=== PATIENT | female | born 1995 | race Caucasian/White ===

== ENCOUNTER → 2016-05-04 | Outpatient (CLI) | payer OTHER ==
[~2016-05-04] MED LIST: DICY10CA55 PO; DOCU-94 PO; DOCU100C PO; DULO60CA44 PO; FLUO40CA8 PO; LEVO200T PO; MONT1TAB3 PO; NORE-3 PO; NORE1TAB70 PO; NORE1TAB99 PO; ONDA4TAB46 PO; PANT40TA PO; POLY150C4 PO; PRT/20 PO; [UNRECOGNIZED DRUG - CODE] PO
--- NOTE | 2016-05-04 18:09 | DIAGNOSTIC IMAGING REPORT ---
LEFT RIBS UNILATERAL WITH PA CHEST CLINICAL HISTORY: Left rib pain. COMPARISON STUDY: No previous studies for comparison. FINDINGS: The erect chest reveals no pneumothorax. There is no focal pulmonary consolidation. No left-sided rib fractures are visualized. No destructive lesions are visualized on conventional radiographic imaging. IMPRESSION: 1. No left-sided rib fractures or destructive lesions are visualized 2. No evidence of pneumothorax Electronically signed by: Fidencio Diaz M.D. 05/04/2016 6:08 PM Dictated Date/Time: 05/04/2016 6:06 PM
== END | disposition home or self-care (01) ==
LOC: C.RAD 17:42
PROVIDERS: ATTEND Family Medicine
DX: R07.81 Pleurodynia (principal)

== ENCOUNTER 2016-05-09 11:22 | Emergency (ER) | payer OTHER ==
[~2016-05-09] VITALS: Ht 172.7 cm; Wt 126.1 kg
[~2016-05-09 11:22] MED LIST changes: -DICY10CA55 PO; -DOCU-94 PO; -DOCU100C PO; -DULO60CA44 PO; -MONT1TAB3 PO; -NORE-3 PO; -NORE1TAB99 PO; -PANT40TA PO; -POLY150C4 PO; -[UNRECOGNIZED DRUG - CODE] PO
[2016-05-09 11:26] VITALS: TEMP 36.9; Ht 172.7 cm; Wt 126.1 kg
[2016-05-09] MEDS ORDERED: NORE1TAB99 PO (12:55)
[2016-05-09] MEDS ORDERED: POLY150C4 PO (12:55)
--- NOTE | 2016-05-09 13:00 | DIAGNOSTIC IMAGING REPORT ---
PA CHEST WITH ABDOMINAL SERIES CLINICAL HISTORY: Generalized abdominal pain. Constipation. FINDINGS: A PA chest radiograph is compared to study dated 05/09/2015. The cardiomediastinal silhouette is unremarkable. The lungs and pleural spaces are clear. No pneumothorax is seen. The bony thorax is grossly intact. Supine and erect abdominal radiographs are compared to study dated and correlated with abdominal CT dated 08/31/2015. There is a nonobstructed abdominal bowel gas pattern noting moderate to severe constipation. No intraperitoneal free air is seen. There are no abnormal abdominal calcifications. The lumbosacral spine and bony pelvis appear intact. IMPRESSION: 1. No active disease in the chest. 2. Moderate to severe constipation. Electronically signed by: Glenn Taveras M.D. 05/09/2016 12:58 PM Dictated Date/Time: 05/09/2016 12:57 PM
--- NOTE | 2016-05-09 13:28 | EMERGENCY ROOM VISIT NOTE ---
History First contact with patient: 11:35 Chief Complaint: ABDOMINAL PAIN Stated Complaint: ABD PAIN,CONSTIPATION Nursing Triage Summary: Triage note: pt reports lower abd pain "i think it is just constipation." pt reports last bm was over a week ago. pt reports using otc medication with no success. History of Present Illness The patient is a 20 year old female who presents to the Emergency Room with complaints of constipation. The patient reports that she has not had a bowel movement for one week. She states that today, she developed some discomfort in her lower abdomen which she feels is likely secondary to the constipation. She does have a history of occasional constipation due to gastroparesis. She states that she has had some nausea, but this is not unusual for her. She's been taking her nausea medication at home and has not had any vomiting. She states that she took Dulcolax yesterday, but did not have a bowel movement. She rates her overall discomfort a 2/10. She called her primary care provider and was told to come here for evaluation. She denies any chest pain, shortness of breath, vaginal bleeding, vaginal discharge or urinary symptoms. Review of Systems A complete 10-point Review of Systems was discussed with the patient, with pertinent positives and negatives listed in the History of Present Illness. All remaining Review of Systems questions can be considered negative unless otherwise specified. Past Medical/Surgical History Medical Problems: (1) Depression (2) History of thyroidectomy (3) HX OF THYROID MALIGNANCY (4) HYPOTHYROIDISM NOS (5) IRON DEFIC ANEMIA NOS (6) POSTSURGICAL STATES NEC (7) THROMBOCYTOPATHY (8) Tonsillectomy (9) Traumatic pneumothorax Family History Depression Social History Smoking Status: Never Smoker Alcohol Use: none Drug Use: none Marital Status: single Housing Status: lives alone Occupation Status: student Current/Historical Medications Scheduled Fluoxetine (Prozac), 40 MG PO QD Levothyroxine Sodium (Synthroid), 1 TAB PO DAILY Norethin Acet & Estrad-Fe (Gildess Fe 04/17), 1 TAB PO DAILY Pantoprazole (Protonix), 20 MG PO DAILY Polysaccharide Iron Complex (Ferrex 150), 300 MG PO DAILY Scheduled PRN Ondansetron Hcl (Zofran), 4 MG PO TID PRN for Nausea Allergies Coded Allergies: No Known Allergies (Verified , 05/09/16) Physical Exam Vital Signs Date Time Temp Pulse Resp B/P Pulse Ox O2 Delivery O2 Flow Rate FiO2 05/09/16 13:29 66 18 161/107 97 Room Air 05/09/16 12:58 77 18 127/92 97 Room Air 05/09/16 11:26 36.9 82 18 128/92 97 Room Air Physical Exam VITALS: Vitals are noted on the nurse's note and reviewed by myself. Vital signs stable. GENERAL: This is a 20-year-old female, in no acute distress, nondiaphoretic, well-developed well-nourished. SKIN: Capillary reflex less than 2 seconds. HEENT: Normocephalic. PERRLA. EOMI. Nares patent. Mucous membranes moist. Neck is supple without nuchal rigidity. HEART: Regular rate and rhythm without murmurs gallops or rubs. LUNGS: Clear to auscultation bilaterally without wheezes, rales or rhonchi. ABDOMEN: Positive bowel sounds x 4. Minimal tenderness to palpation across the lower abdomen. No guarding or rebound tenderness. No focal tenderness. NEURO: Patient was alert and oriented to person place and time. Medical Decision & Procedures ER Provider Diagnostic Interpretation: PA CHEST WITH ABDOMINAL SERIES CLINICAL HISTORY: Generalized abdominal pain. Constipation. FINDINGS: A PA chest radiograph is compared to study dated 05/09/2015. The cardiomediastinal silhouette is unremarkable. The lungs and pleural spaces are clear. No pneumothorax is seen. The bony thorax is grossly intact. Supine and erect abdominal radiographs are compared to study dated and correlated with abdominal CT dated 08/31/2015. There is a nonobstructed abdominal bowel gas pattern noting moderate to severe constipation. No intraperitoneal free air is seen. There are no abnormal abdominal calcifications. The lumbosacral spine and bony pelvis appear intact. IMPRESSION: 1. No active disease in the chest. 2. Moderate to severe constipation. Medications Administered Medications (Trade) Dose Ordered Sig/Michela Route Start Time Stop Time Status Last Admin Dose Admin Magnesium Citrate (Citrate Of Magnesia Soln) 150 ml NOW ONCE PO 05/09/16 13:30 05/09/16 13:31 DC 05/09/16 13:27 150 ML Medical Decision Differential diagnosis includes constipation, bowel obstruction, appendicitis, cholecystitis, gastroenteritis, colitis, among others. The patient was evaluated as above. She presents complaining of constipation and mild lower abdominal pain. She does not have a surgical abdomen and has only minimal tenderness to palpation of the lower abdomen. I feel that her abdominal discomfort is secondary to the constipation, as the constipation began for the abdominal pain and her exam is not impressive. Abdominal series was performed and read by radiology to show moderate to severe constipation. The patient was informed of this. She was offered an enema but declined. She was given magnesium citrate for relief of the constipation. I did discuss using a stool softener at home. The patient agreed to follow-up with her primary care provider this week for further evaluation, but will return for any worsening or concerning symptoms. Based on the patient's presentation, lab results, and imaging studies, I feel the patient is stable for outpatient treatment. Discharge instructions were reviewed with the patient. The patient verbalized understanding of my assessment and treatment plan and was discharged home in good condition. Impression Primary Impression: Constipation Departure Information Dispostion Home / Self-Care Condition GOOD Referrals Riri Hernandez DO (PCP) Patient Instructions My [facility] Additional Instructions Take the remaining magnesium citrate in 2-3 hours when you get home. If you do not have relief with this medication, you may use [id number] medications or [id number] enemas for constipation. You should begin taking a stool softener daily. You should follow-up with your primary care provider this week for further evaluation of your constipation. Return to the emergency department with worsening pain, vomiting, worsening constipation or any other new/concerning symptoms. Problem Qualifiers Primary Impression: Constipation Constipation type: unspecified constipation type Qualified Codes: K59.00 - Constipation, unspecified
[2016-05-09 13:29] VITALS: BP 161/107; PULSE 66; O2SAT 97
[2016-05-09] MEDS ORDERED: MAGNESIUM CITRATE 296 ML/BTL PO ONE (13:30)
[2016-05-10] MEDS ORDERED: DULO60CA44 PO (09:03)
== END 2016-05-09 13:42 | disposition home or self-care (01) ==
LOC: C.EDB 11:23
DX: K59.00 Constipation, unspecified (principal); F32.9 Major depressive disorder, single episode, unspecified; E89.0 Postprocedural hypothyroidism; D50.9 Iron deficiency anemia, unspecified; Z85.850 Personal history of malignant neoplasm of thyroid; Z79.899 Other long term (current) drug therapy; Z81.8 Family history of other mental and behavioral disorders

== ENCOUNTER 2016-05-10 08:18 | Emergency (ER) | payer OTHER ==
[~2016-05-10] VITALS: Ht 172.7 cm; Wt 125.4 kg
[~2016-05-10 08:18] MED LIST changes: -NORE1TAB70 PO; +NORE1TAB99 PO; +POLY150C4 PO
[2016-05-10 08:29] VITALS: Ht 172.7 cm; Wt 125.4 kg
[2016-05-10] MEDS ORDERED: SOD PHOSPHATE/SOD BIPHOSPHATE ENEMA 132 ML BTL PR STA (08:49)
[2016-05-10] MEDS ORDERED: ONDANSETRON INJ 2 MG/ML 2 ML VIAL IV STA (08:49)
[2016-05-10] MEDS ORDERED: SODIUM CHLORIDE 0.9% 1000ML 1,000 ML IV STA (08:49)
[2016-05-10] MEDS ORDERED: SOAP SUDS ENEMA PR STA (08:49)
[2016-05-10] MEDS ORDERED: KETOROLAC TROMETHAMINE 30 MG/ML VIAL IV STA (08:49)
[2016-05-10] MEDS ORDERED: HYDROmorphone INJ 1 MG/ML SYR IV STA (08:49)
[2016-05-10] MEDS ORDERED: OPTIRAY 320 IV PRN (09:00)
--- NOTE | 2016-05-10 09:02 | EMERGENCY ROOM VISIT NOTE ---
History Report prepared by Eulogio: Ana Lilia Fonseca Under the Supervision of: Dr. Katia Luna M.D. First contact with patient: 08:35 Chief Complaint: ABDOMINAL PAIN Stated Complaint: ABDOMINAL PAIN Nursing Triage Summary: pt report constipation X 1 week , pt took supp prior to being seen here yesterday , then was given enema and mag citrate here yesterday, pt took stool softner OTC, still no BM , cont with abdominal cramping and had 1 small BM this AM History of Present Illness The patient is a 20 year old female who presents to the Emergency Room with complaints of persistent diffuse abdominal pain that started yesterday. She rates her discomfort as a 4/10 in severity. She describes the pain as cramping. The patient states that she has been constipated for one week now. The patient is also experiencing nausea, but denies any vomiting. She states that she has been unable to eat or drink secondary to the nausea. She was seen in the ED yesterday and took a suppository prior to being seen. While in the ED yesterday she was given an enema and magnesium citrate. She tried an [id number]-zlm-cubdjvh stool softener when she got home yesterday. The patient has experienced minimal relief of her constipation with all of the things that she took. She states that she only had a small bowel movement this morning, but otherwise has not had any bowel movements. The patient reports that she has been diagnosed with gastroparesis and thinks that could be contributing to her constipation. She also reports that she takes two iron pills daily. The patient denies recreational narcotic use and she states that she only uses them after surgeries as prescribed. The patient denies any previous abdominal surgeries along with any previous abdominal CT scans. Source of History: patient Onset: yesterday Position: abdomen (diffuse) Symptom Intensity: 4/10 Quality: cramping Timing: other (persistent) Modifying Factors (Relieving): other (None) Associated Symptoms: + nausea, No vomiting Note: constipation Review of Systems See HPI for pertinent positives & negatives. A total of 10 systems reviewed and were otherwise negative. Past Medical & Surgical Medical Problems: (1) Depression (2) History of thyroidectomy (3) HX OF THYROID MALIGNANCY (4) HYPOTHYROIDISM NOS (5) IRON DEFIC ANEMIA NOS (6) POSTSURGICAL STATES NEC (7) THROMBOCYTOPATHY (8) Tonsillectomy (9) Traumatic pneumothorax Family History Depression Social History Smoking Status: Never Smoker Alcohol Use: none Drug Use: none Marital Status: single Housing Status: lives alone Occupation Status: student Current/Historical Medications Scheduled Duloxetine Hcl (Cymbalta), 1 CAP PO DAILY Levothyroxine Sodium (Synthroid), 1 TAB PO DAILY Norethin Acet & Estrad-Fe (Gildess Fe 04/17), 1 TAB PO DAILY Pantoprazole (Protonix), 20 MG PO DAILY Polysaccharide Iron Complex (Ferrex 150), 300 MG PO DAILY Allergies Coded Allergies: No Known Allergies (Verified , 05/10/16) Physical Exam Vital Signs Date Time Temp Pulse Resp B/P Pulse Ox O2 Delivery O2 Flow Rate FiO2 05/10/16 11:49 75 16 118/78 96 Room Air 05/10/16 10:19 84 20 144/100 98 Room Air 05/10/16 08:29 37.2 86 18 138/94 98 Room Air Physical Exam CONSTITUTIONAL: The patient is in mild distress. HEENT: No icterus, moist mucous membranes NECK: No meningismus, trachea is midline. CARDIOVASCULAR: Regular rate, normal perfusion RESPIRATORY: Unlabored breathing. Clear to auscultation. GASTROINTESTINAL: Non-tender GENITOURINARY: No flank tenderness MUSCULOSKELETAL: Full range of motion RECTAL (performed in the presence of a female nurse smocking machine operator): No evidence of impaction. NEUROLOGIC: No acute gross focal deficits. PSYCHIATRIC: Normal affect SKIN: Normal for ethnicity. Medical Decision & Procedures ER Provider Diagnostic Interpretation: CT results as stated below per my review and radiologist interpretation. CT OF THE ABDOMEN AND PELVIS WITH CONTRAST IMPRESSION: 1. Moderate amount of stool within the mid sigmoid colon. Otherwise, mild amount of stool within the remainder of the colon. Mild infiltration adjacent to the sigmoid colon is nonspecific but may reflect a nonspecific colitis. No bowel obstruction. No free air. 2. Partially obscured appendix which is likely within normal limits. The appendix is at the upper limits of normal for caliber. No convincing evidence for acute appendicitis but close clinical follow-up is recommended. 3. Small amount of fluid within the pelvis. 4. Trace bilateral pleural effusions. Electronically signed by: Clemente Cote M.D. 05/10/2016 11:51 AM Dictated Date/Time: 05/10/2016 11:42 AM Laboratory Results 05/10/16 09:01 Red Blood Count 3.83, Mean Corpuscular Volume 87.7, Mean Corpuscular Hemoglobin 29.8, Mean Corpuscular Hemoglobin Concent 33.9, Mean Platelet Volume 9.8, Neutrophils (%) (Auto) 72.8, Lymphocytes (%) (Auto) 20.4, Monocytes (%) (Auto) 5.5, Eosinophils (%) (Auto) 0.9, Basophils (%) (Auto) 0.2, Neutrophils # (Auto) 3.85, Lymphocytes # (Auto) 1.08, Monocytes # (Auto) 0.29, Eosinophils # (Auto) 0.05, Basophils # (Auto) 0.01 05/10/16 09:01 Test 05/10/16 09:01 White Blood Count 5.29 K/uL (4.8-10.8) Red Blood Count 3.83 M/uL (4.2-5.4) Hemoglobin 11.4 g/dL (12.0-16.0) Hematocrit 33.6 % (37-47) Mean Corpuscular Volume 87.7 fL (80-100) Mean Corpuscular Hemoglobin 29.8 pg (25-34) Mean Corpuscular Hemoglobin Concent 33.9 g/dl (32-36) Platelet Count 180 K/uL (130-400) Mean Platelet Volume 9.8 fL (7.4-10.4) Neutrophils (%) (Auto) 72.8 % Lymphocytes (%) (Auto) 20.4 % Monocytes (%) (Auto) 5.5 % Eosinophils (%) (Auto) 0.9 % Basophils (%) (Auto) 0.2 % Neutrophils # (Auto) 3.85 K/uL (1.4-6.5) Lymphocytes # (Auto) 1.08 K/uL (1.2-3.4) Monocytes # (Auto) 0.29 K/uL (0.11-0.59) Eosinophils # (Auto) 0.05 K/uL (0-0.5) Basophils # (Auto) 0.01 K/uL (0-0.2) RDW Standard Deviation 45.6 fL (36.4-46.3) RDW Coefficient of Variation 14.2 % (11.5-14.5) Immature Granulocyte % (Auto) 0.2 % Immature Granulocyte # (Auto) 0.01 K/uL (0.00-0.02) Urine Color YELLOW Urine Appearance CLEAR (CLEAR) Urine pH >= 9.0 (4.5-7.5) Urine Specific [place] 1.015 (1.000-1.030) Urine Protein TRACE (NEG) Urine Glucose (UA) NEG (NEG) Urine Ketones NEG (NEG) Urine Occult Blood NEG (NEG) Urine Nitrite NEG (NEG) Urine Bilirubin NEG (NEG) Urine Urobilinogen NEG (NEG) Urine Leukocyte Esterase NEG (NEG) Anion Gap 8.0 mmol/L (3-11) Est Creatinine Clear Calc Drug Dose 126.9 ml/min Estimated GFR () 95.6 Estimated GFR (Non- 82.5 BUN/Creatinine Ratio 17.3 (10-20) Calcium Level 9.2 mg/dl (8.5-10.1) Human Chorionic Gonadotropin, Qual NEG (NEG) Labs reviewed by ED physician. Medications Administered Medications (Trade) Dose Ordered Sig/Michela Route Start Time Stop Time Status Last Admin Dose Admin Sodium Chloride (Nss 1000ml) 1,000 ml @ 0 mls/hr Q0M STAT IV 05/10/16 08:49 05/10/16 08:52 DC 05/10/16 08:49 0 MLS/HR Miscellaneous (Soap Suds Enema) 1 ea NOW STAT WA 05/10/16 08:49 05/10/16 08:52 DC 05/10/16 09:59 1 EA Ondansetron HCl (Zofran Inj) 4 mg NOW STAT IV 05/10/16 08:49 05/10/16 08:52 DC 05/10/16 10:24 4 MG Ketorolac Tromethamine (Toradol Inj) 30 mg NOW STAT IV 05/10/16 08:49 05/10/16 08:52 DC 05/10/16 10:23 30 MG ED Course 0848: Past medical records reviewed. The patient was evaluated in room B8. A complete history and physical examination was performed. 0849: Ordered Dilaudid Inj 1 mg IV, Toradol Inj 30 mg IV, Zofran Inj 4 mg IV, Soap Suds Enema 1 ea WA, Sodium Chloride 1000 ml @ 0 mls/hr Wide Open IV 1002: I reassessed the patient. She is resting comfortably. 1232: Upon reexamination the patient is doing ok. I discussed results and treatment plan with the patient. She verbalizes agreement and understanding. The patient is ready for discharge. Medical Decision Differential diagnoses include but are not limited to; constipation, obstruction. 20-year-old presented to the emergency department for evaluation of persistent constipation and mild nausea today after being seen in ER yesterday for same. No history of bowel surgery. Rectal exam revealed no impaction. Abdomen benign. CT demonstrated significant stool. No stool produced with subsequent development. Patient given hand written prescription for both HalfLytely and fleet enemas when necessary. Impression Primary Impression: Constipation Scribe Attestation The scribe's documentation has been prepared under my direction and personally reviewed by me in its entirety. I confirm that the note above accurately reflects all work, treatment, procedures, and medical decision making performed by me. Departure Information Dispostion Home / Self-Care Referrals Riri Hernandez DO (PCP) Forms HOME CARE DOCUMENTATION FORM, IMPORTANT VISIT INFORMATION Patient Instructions ED Constipation , [facility] Additional Instructions TAKE HALF LYTELY PRESCRIPTION. FLEET ENEMAS NEEDED. Problem Qualifiers Primary Impression: Constipation Constipation type: unspecified constipation type Qualified Codes: K59.00 - Constipation, unspecified
[2016-05-10] MEDS ORDERED: DULO60CA44 PO (09:03)
[2016-05-10 09:23] LABS: BASO % 0.2 %; BASO ABS # 0.01 K/uL (0-0.2); COMPLETE YES; EOS % 0.9 %; HEMATOCRIT 33.6 % (37-47); IG% 0.2 %; LYMPH % 20.4 %; LYMPH ABS # 1.08 K/uL (1.2-3.4); MEAN CELL VOLUME 87.7 fL (80-100); MEAN CORPUSCULAR HEMOGLOBIN 29.8 pg (25-34); MEAN CORPUSCULAR HGB CONC 33.9 g/dl (32-36); MEAN PLATELET VOLUME 9.8 fL (7.4-10.4); MONO % 5.5 %; NEUT % 72.8 %; PLATELET COUNT 180 K/uL (130-400); RED BLOOD COUNT 3.83 M/uL (4.2-5.4); WHITE BLOOD COUNT 5.29 K/uL (4.8-10.8)
[2016-05-10 09:37] LABS: BUN/CREATININE RATIO 17.3 (10-20); CALCIUM 9.2 mg/dl (8.5-10.1); CREATININE 0.98 mg/dl (0.60-1.20); POTASSIUM 3.9 mmol/L (3.5-5.1)
[2016-05-10 09:38] LABS: URINE APPEARANCE CLEAR (CLEAR); URINE BILIRUBIN NEG (NEG); URINE COLOR YELLOW; URINE NITRITE NEG (NEG); URINE PH >= 9.0 (4.5-7.5); URINE SPECIFIC GRAVITY 1.015 (1.000-1.030); UROBILINOGEN NEG (NEG)
[2016-05-10 09:42] LABS: MANUAL MICROSCOPIC REQUIRED? NO; REVIEW REQ? NO
[2016-05-10 09:43] LABS: PREG INTERNAL NEGATIVE QC NEG CLEAR BACKGROUND; PREG INTERNAL POSITIVE QC POS CONTROL LINE
--- NOTE | 2016-05-10 11:52 | DIAGNOSTIC IMAGING REPORT ---
CT OF THE ABDOMEN AND PELVIS WITH CONTRAST CLINICAL HISTORY: Severe constipation. Abdominal pain. COMPARISON STUDY: CT of the abdomen and pelvis August 31, 2015. TECHNIQUE: Following IV administration of 119 mL of Optiray-320, axial images of the abdomen and pelvis were obtained from the lung bases to the proximal femurs. Images were reviewed in the axial, sagittal, and coronal planes. IV contrast was administered without complication. Oral contrast was administered. CT DOSE: 1787.67 mGy.cm FINDINGS: Visualized portions of the lower chest demonstrate trace bilateral pleural effusions. There is no pneumatosis, free air or portal venous gas. The liver, spleen, adrenal glands, kidneys and pancreas are normal. There is no evidence for a bowel obstruction. There is a moderate amount of stool within the mid sigmoid colon. Otherwise, there is a moderate amount of poorly formed stool within the more proximal colon. There is mild infiltration adjacent to the sigmoid colon. A small amount of fluid is noted within the pelvis. The ovaries are not enlarged. The appendix is partially obscured but likely visualized. The caliber of the appendix is at the upper limits of normal, measuring 6 mm. IMPRESSION: 1. Moderate amount of stool within the mid sigmoid colon. Otherwise, mild amount of stool within the remainder of the colon. Mild infiltration adjacent to the sigmoid colon is nonspecific but may reflect a nonspecific colitis. No bowel obstruction. No free air. 2. Partially obscured appendix which is likely within normal limits. The appendix is at the upper limits of normal for caliber. No convincing evidence for acute appendicitis but close clinical follow-up is recommended. 3. Small amount of fluid within the pelvis. 4. Trace bilateral pleural effusions. Electronically signed by: Clemente Cote M.D. 05/10/2016 11:51 AM Dictated Date/Time: 05/10/2016 11:42 AM
[2016-05-10 12:44] VITALS: BP 118/78; PULSE 77; O2SAT 98
== END 2016-05-10 12:45 | disposition home or self-care (01) ==
LOC: C.EDB 08:19
DX: K59.00 Constipation, unspecified (principal); Z85.850 Personal history of malignant neoplasm of thyroid; E03.9 Hypothyroidism, unspecified; D50.9 Iron deficiency anemia, unspecified; F32.9 Major depressive disorder, single episode, unspecified; Z79.899 Other long term (current) drug therapy

== ENCOUNTER 2016-05-12 06:29 | Emergency (ER) | payer OTHER ==
[~2016-05-12] VITALS: Ht 172.7 cm; Wt 125.4 kg
[~2016-05-12 06:29] MED LIST changes: +DULO60CA44 PO; -FLUO40CA8 PO; -ONDA4TAB46 PO
[2016-05-12 06:35] VITALS: TEMP 36.8; Ht 172.7 cm; Wt 125.4 kg
[2016-05-12] MEDS ORDERED: [UNRECOGNIZED DRUG - CODE] PO (06:45)
[2016-05-12] MEDS ORDERED: DOCU100C PO (06:45)
--- NOTE | 2016-05-12 07:57 | DIAGNOSTIC IMAGING REPORT ---
ABDOMEN 2VIEW W/PA CHEST RTN CLINICAL HISTORY: Persistent abd pain/constipation COMPARISON STUDY: No previous studies for comparison. FINDINGS: The soft tissues, psoas shadows, renal outlines and intestinal gas pattern appear normal. There is no evidence for bowel obstruction. There is no evidence for free intraperitoneal air. No abnormal abdominal calcifications are seen. A frontal view of the chest was performed and is unremarkable. IMPRESSION: Normal study. Electronically signed by: Manolo Valdez M.D. 05/12/2016 7:56 AM Dictated Date/Time: 05/12/2016 7:55 AM
[2016-05-12] MEDS ORDERED: KETOROLAC TROMETHAMINE 60 MG/2 ML VIAL IM STA (08:59)
[2016-05-12] MEDS ORDERED: ONDANSETRON 4MG OD TAB PO ONE (09:00)
[2016-05-12 09:15] VITALS: BP 144/84; PULSE 69; O2SAT 99
[2016-05-12] MEDS ORDERED: METOCLOPRAMIDE HCL 10 MG TAB PO STA (09:27)
[2016-05-12] MEDS ORDERED: METOCLOPRAMIDE HCL 5 MG TAB PO ONE (09:38)
--- NOTE | 2016-05-12 11:09 | EMERGENCY ROOM VISIT NOTE ---
History First contact with patient: 07:06 Chief Complaint: ABDOMINAL PAIN Stated Complaint: ABDOMINAL PAIN,BACK PAIN,CONSTIPATION Nursing Triage Summary: Patient c/o pain in both sides, in her back and around the front (abdominal) since Wednesday night. States she has been constipated and "tried everything" and "I haven't eaten in 3 days, I've have liquid." History of Present Illness The patient is a 20 year old female who presents to the Emergency Room with complaints of persistent constipation, abdominal and back pain. The patient reports that she has had generalized pain since last Wednesday. She was seen in the emergency department twice over the weekend with laboratory and imaging studies showing evidence for moderate to severe constipation. The patient was given instructions on use of MiraLAX, Colace, rectal suppositories and enemas. The patient reports that her last BM was approximately 2 weeks ago. She reports mild nausea without vomiting or fever. She denies any rectal bleeding or flatulence. The patient rates her discomfort an 8 out of 10. The patient does have a history of gastroparesis. Review of Systems 10 system review was performed and was negative except for pertinent positives and negatives as indicated in history of present illness Past Medical/Surgical History Medical Problems: (1) Depression (2) History of thyroidectomy (3) HX OF THYROID MALIGNANCY (4) HYPOTHYROIDISM NOS (5) IRON DEFIC ANEMIA NOS (6) POSTSURGICAL STATES NEC (7) THROMBOCYTOPATHY (8) Tonsillectomy (9) Traumatic pneumothorax Family History Depression Social History Smoking Status: Current Every Day Smoker Alcohol Use: none Drug Use: none Marital Status: single Housing Status: lives alone Occupation Status: student Current/Historical Medications Scheduled Duloxetine Hcl (Cymbalta), 1 CAP PO DAILY Levothyroxine Sodium (Synthroid), 1 TAB PO DAILY Norethin Acet & Estrad-Fe (Gildess Fe 04/17), 1 TAB PO DAILY Pantoprazole (Protonix), 20 MG PO DAILY Polysaccharide Iron Complex (Ferrex 150), 300 MG PO DAILY Scheduled PRN Docusate Sodium (Stool Softener), 100 MG PO UD PRN for Constipation Magnesium Citrate (Eq Magnesium Citrate), 1 DOSE PO UD PRN for Constipation Allergies Coded Allergies: No Known Allergies (Verified , 05/10/16) Physical Exam Vital Signs Date Time Temp Pulse Resp B/P Pulse Ox O2 Delivery O2 Flow Rate FiO2 05/12/16 09:15 69 16 144/84 99 Room Air 05/12/16 06:35 36.8 89 18 130/75 97 Room Air Physical Exam CONSTITUTIONAL: Morbidly obese female, alert and oriented X 3 with positive affect. HEENT: Normocephalic, atraumatic. Pupils equal, round and reactive. Ears and nares are clear. No scleral icterus or conjunctival injection/pallor. NECK: Full active range of motion without discomfort. RESPIRATORY: Clear to auscultation bilaterally with no wheezing, crackles, rhonchi or stridor. CARDIOVASCULAR: Regular rate and rhythm with no murmurs, rubs or gallops. GASTROINTESTINAL: Bowel sounds present in all quadrants. Abdomen is protuberant but soft to palpation. She has generalized nonfocal tenderness to palpation. Negative CVA tenderness. Negative McBurney's point tenderness. No rigidity, guarding or rebound. MUSCULOSKELETAL: Full range of motion of all joints without discomfort. INTEGUMENTARY: No rash or other significant dermatologic conditions noted. NEUROLOGIC: No focal neurologic deficits noted. Medical Decision & Procedures ER Provider Diagnostic Interpretation: An abdomen obstruction series with PA chest shows no evidence for obstruction or free air. The patient still has a significant amount of oral contrast left from her CT scan less than 48 hours ago. Radiologist report is as follows: ABDOMEN 2VIEW W/PA CHEST RTN CLINICAL HISTORY: Persistent abd pain/constipation COMPARISON STUDY: No previous studies for comparison. FINDINGS: The soft tissues, psoas shadows, renal outlines and intestinal gas pattern appear normal. There is no evidence for bowel obstruction. There is no evidence for free intraperitoneal air. No abnormal abdominal calcifications are seen. A frontal view of the chest was performed and is unremarkable. IMPRESSION: Normal study. Medications Administered Medications (Trade) Dose Ordered Sig/Michela Route Start Time Stop Time Status Last Admin Dose Admin Ketorolac Tromethamine (Toradol Inj) 60 mg NOW STAT IM 05/12/16 08:59 05/12/16 09:00 DC 05/12/16 09:14 60 MG Ondansetron HCl (Zofran Odt) 4 mg ONE ONCE PO 05/12/16 09:00 05/12/16 09:01 DC 05/12/16 09:14 4 MG Metoclopramide HCl (Reglan Tab) 10 mg STK-MED ONCE PO 2/14/17 09:38 05/12/16 09:41 DC 05/12/16 09:43 10 MG ED Course Patient history and physical exam were performed. Nurse's notes were reviewed. Signs were reviewed and were normal. I did review documentation from the patient's 2 visits this past weekend in our emergency department. Laboratory studies have been normal. CT scan does not show any acute findings other than moderate to severe constipation. Further review of past medical records shows that the patient underwent a colonoscopy in May [address] Vance for rectal bleeding. Colonoscopy showed internal hemorrhoids with no other acute findings. X-rays today showed no obstruction or free air. She still has a large oral contrast load. Digital rectal exam was then performed and showed no evidence for significant stool within the rectal vault. Stool Hemoccult was negative. At this point, I contacted Dr. Vance, who suggested having the patient increase her MiraLAX dosing. She was given Reglan 10 mg orally while in the emergency department. She will contact Dr. Vance's office for further reevaluation and management. Medical Decision Patient presents to the emergency department with complaint of abdominal pain and constipation without any significant bowel movement within the past 2 weeks. This is now the patient's third visit within the past 4 days. Her lab work, x-rays and CT studies are unremarkable. I do not suspect acute appendicitis, diverticulitis, bowel obstruction, mesenteric adenitis or ischemic gut. Her most recent laboratory studies also do not suggest pancreatitis, cholecystitis, hepatitis or UTI. Impression Primary Impression: Abdominal pain Additional Impression: Constipation Departure Information Referrals Riri Hernandez DO (PCP) Patient Instructions My [facility] Problem Qualifiers Primary Impression: Abdominal pain Abdominal location: generalized Qualified Codes: R10.84 - Generalized abdominal pain Additional Impression: Constipation Constipation type: slow transit constipation Qualified Codes: K59.01 - Slow transit constipation
== END 2016-05-12 09:47 | disposition home or self-care (01) ==
LOC: C.EDB 06:30 → C.EDA 09:47
DX: R10.9 Unspecified abdominal pain (principal); K59.00 Constipation, unspecified; E03.9 Hypothyroidism, unspecified; F32.9 Major depressive disorder, single episode, unspecified; D50.9 Iron deficiency anemia, unspecified; F17.200 Nicotine dependence, unspecified, uncomplicated; Z85.850 Personal history of malignant neoplasm of thyroid; Z98.890 Other specified postprocedural states; Z79.899 Other long term (current) drug therapy

== ENCOUNTER 2016-09-09 01:59 | Emergency (ER) | payer OTHER ==
[~2016-09-09] VITALS: Ht 172.7 cm; Wt 107.1 kg
[~2016-09-09 01:59] MED LIST changes: +DOCU100C PO; +[UNRECOGNIZED DRUG - CODE] PO
[2016-09-09 02:06] VITALS: TEMP 36.6; Ht 172.7 cm; Wt 107.1 kg
[2016-09-09] MEDS ORDERED: PANTOprazole SOD 40 MG TAB PO STA (02:11)
[2016-09-09] MEDS ORDERED: GI COCKTAIL PO ONE (02:15)
[2016-09-09] MEDS ORDERED: SODIUM CHLORIDE 0.9% 1000ML 1,000 ML IV ONE (02:15)
[2016-09-09] MEDS ORDERED: LIDOCAINE HCL 2% VISC SOLN 20 ML UDC ONE (02:17)
[2016-09-09] MEDS ORDERED: ALUMINUM/MAGNESIUM SUSP 30 ML UDC ONE (02:17)
[2016-09-09 02:25] LABS: BASO % 0.2 %; BASO ABS # 0.01 K/uL (0-0.2); COMPLETE YES; EOS % 3.2 %; HEMATOCRIT 37.2 % (37-47); IG% 0.2 %; LYMPH % 35.6 %; LYMPH ABS # 1.88 K/uL (1.2-3.4); MEAN CELL VOLUME 88.6 fL (80-100); MEAN CORPUSCULAR HEMOGLOBIN 29.3 pg (25-34); MEAN CORPUSCULAR HGB CONC 33.1 g/dl (32-36); MEAN PLATELET VOLUME 10.9 fL (7.4-10.4); MONO % 11.6 %; NEUT % 49.2 %; PLATELET COUNT 246 K/uL (130-400); WHITE BLOOD COUNT 5.28 K/uL (4.8-10.8)
[2016-09-09 02:34] LABS: POINT OF CARE TROPONIN I < 0.030 ng/ml (0-0.045)
[2016-09-09 02:49] LABS: BUN/CREATININE RATIO 15.2 (10-20); CALCIUM 8.8 mg/dl (8.5-10.1); CREATININE 0.88 mg/dl (0.60-1.20); MAGNESIUM 2.4 mg/dl (1.8-2.4); POTASSIUM 4.1 mmol/L (3.5-5.1)
[2016-09-09] MEDS ORDERED: FLUO40CA8 PO (02:55)
[2016-09-09] MEDS ORDERED: MONT1TAB3 PO (02:55)
[2016-09-09 03:00] LABS: ALB/GLOB RATIO 0.9 (0.9-2); THYROID STIMULATING HORMONE 2.22 uIu/ml (0.300-4.500)
[2016-09-09 03:24] LABS: URINE APPEARANCE CLEAR (CLEAR); URINE BILIRUBIN NEG (NEG); URINE COLOR YELLOW; URINE NITRITE NEG (NEG); URINE SPECIFIC GRAVITY 1.023 (1.000-1.030); UROBILINOGEN NEG (NEG); ZZUR CULT IF INDIC CLEAN CATCH NO
[2016-09-09 03:25] LABS: MANUAL MICROSCOPIC REQUIRED? NO; REVIEW REQ? NO
[2016-09-09 03:27] LABS: LYME DISEASE AB IGG NEG (NEG); LYME DISEASE AB IGM NEG (NEG)
[2016-09-09] MEDS ORDERED: PANT40TA PO (04:17)
[2016-09-09 04:18] VITALS: BP 114/79; PULSE 87; O2SAT 98
[2016-09-09] MEDS ORDERED: NORCO 5/325MG HOME PACK PO ONE (04:30)
[2016-09-09] MEDS ORDERED: ONDANSETRON HOME PACK 4MG OD TAB PO ONE (04:30)
--- NOTE | 2016-09-09 06:21 | EMERGENCY ROOM VISIT NOTE ---
History First contact with patient: 02:04 Chief Complaint: CHEST PAIN Stated Complaint: CHEST PAIN,BREATHING,STOMACH Nursing Triage Summary: Pt has hax gastroparesis. Pt reports uper mid abdominal pain that goes into the chest and back. Pt reports 10/10. Pain started about an hour ago. Pt states, "I feel like I am exploding." History of Present Illness The patient is a 21 year old female who presents to the Emergency Room with complaints of epigastric/lower chest pain that began approximately one hour ago. The patient states that she was sleeping in her discomfort woke her from sleep. She rates her pain a 10/10 that does not radiate otherwise. The patient has not taken anything [id number] for her discomfort. She has a reported history of gastroparesis and has had multiple colonoscopies that have been reportedly negative. She has not had fever or chills. No shortness of breath. The patient states that she has had similar symptoms like this previously. She denies chance of . Review of Systems More than 10 systems were reviewed and otherwise negative with the exception of history of present illness. Past Medical/Surgical History Medical Problems: (1) Depression (2) History of thyroidectomy (3) HX OF THYROID MALIGNANCY (4) HYPOTHYROIDISM NOS (5) IRON DEFIC ANEMIA NOS (6) POSTSURGICAL STATES NEC (7) THROMBOCYTOPATHY (8) Tonsillectomy (9) Traumatic pneumothorax Family History Depression Social History Smoking Status: Never Smoker Alcohol Use: none Drug Use: none Marital Status: single Housing Status: lives alone Occupation Status: student Current/Historical Medications Scheduled Duloxetine Hcl (Cymbalta), 1 CAP PO DAILY Fluoxetine (Prozac), 40 MG PO DAILY Levothyroxine Sodium (Synthroid), 1 TAB PO DAILY Montelukast Sodium (Singulair), 10 MG PO DAILY Norethin Acet & Estrad-Fe (Gildess Fe 04/17), 1 TAB PO DAILY Pantoprazole (Protonix), 40 MG PO DAILY Allergies Coded Allergies: No Known Allergies (Verified , 09/09/16) Physical Exam Vital Signs Date Time Temp Pulse Resp B/P (MAP) Pulse Ox O2 Delivery O2 Flow Rate FiO2 09/09/16 04:18 87 16 114/79 98 Room Air 09/09/16 03:11 86 16 126/73 98 Room Air 09/09/16 02:11 69 09/09/16 02:10 Room Air 09/09/16 02:06 Room Air 09/09/16 02:06 36.6 92 12 154/97 98 Room Air Pain Rating (0-10): 4.5 Physical Exam VITALS: Vitals are noted on the nurse's note and reviewed by myself. Vital signs stable. GENERAL: Well-developed, well-nourished, white female, who is in no acute distress and resting comfortably. Patient is cooperative with the examination. HEAD: Normocephalic atraumatic. NECK: Supple without nuchal rigidity. No lymphadenopathy. No thyromegaly. Cervical spine is nontender. HEART: Regular rate and rhythm without murmurs gallops or rubs. LUNGS: Clear to auscultation bilaterally without wheezes, rales or rhonchi. No retractions or accessory muscle use. ABDOMEN: Positive normal bowel sounds x 4. Soft with positive epigastric tenderness on palpation. No rebound or guarding. No lower abdominal or CVA tenderness. MUSCULOSKELETAL: No muscle atrophy, erythema, or edema noted. Full range of motion without joint tenderness in all extremities. Medical Decision & Procedures Laboratory Results 09/09/16 02:10 Red Blood Count 4.20, Mean Corpuscular Volume 88.6, Mean Corpuscular Hemoglobin 29.3, Mean Corpuscular Hemoglobin Concent 33.1, Mean Platelet Volume 10.9, Neutrophils (%) (Auto) 49.2, Lymphocytes (%) (Auto) 35.6, Monocytes (%) (Auto) 11.6, Eosinophils (%) (Auto) 3.2, Basophils (%) (Auto) 0.2, Neutrophils # (Auto ) 2.60, Lymphocytes # (Auto) 1.88, Monocytes # (Auto) 0.61, Eosinophils # (Auto ) 0.17, Basophils # (Auto) 0.01 09/09/16 02:10 Test 09/09/16 02:10 09/09/16 02:14 09/09/16 03:15 White Blood Count 5.28 K/uL (4.8-10.8) Red Blood Count 4.20 M/uL (4.2-5.4) Hemoglobin 12.3 g/dL (12.0-16.0) Hematocrit 37.2 % (37-47) Mean Corpuscular Volume 88.6 fL (80-100) Mean Corpuscular Hemoglobin 29.3 pg (25-34) Mean Corpuscular Hemoglobin Concent 33.1 g/dl (32-36) Platelet Count 246 K/uL (130-400) Mean Platelet Volume 10.9 fL (7.4-10.4) Neutrophils (%) (Auto) 49.2 % Lymphocytes (%) (Auto) 35.6 % Monocytes (%) (Auto) 11.6 % Eosinophils (%) (Auto) 3.2 % Basophils (%) (Auto) 0.2 % Neutrophils # (Auto) 2.60 K/uL (1.4-6.5) Lymphocytes # (Auto) 1.88 K/uL (1.2-3.4) Monocytes # (Auto) 0.61 K/uL (0.11-0.59) Eosinophils # (Auto) 0.17 K/uL (0-0.5) Basophils # (Auto) 0.01 K/uL (0-0.2) RDW Standard Deviation 46.0 fL (36.4-46.3) RDW Coefficient of Variation 14.2 % (11.5-14.5) Immature Granulocyte % (Auto) 0.2 % Immature Granulocyte # (Auto) 0.01 K/uL (0.00-0.02) Anion Gap 8.0 mmol/L (3-11) Est Creatinine Clear Calc Drug Dose 128.5 ml/min Estimated GFR () 108.1 Estimated GFR (Non- 93.3 BUN/Creatinine Ratio 15.2 (10-20) Calcium Level 8.8 mg/dl (8.5-10.1) Magnesium Level 2.4 mg/dl (1.8-2.4) Total Bilirubin 0.8 mg/dl (0.2-1) Aspartate Amino Transf (AST/SGOT) 16 U/L (15-37) Alanine Aminotransferase (ALT/SGPT) 24 U/L (12-78) Alkaline Phosphatase 59 U/L (45-117) Total Protein 7.4 gm/dl (6.4-8.2) Albumin 3.6 gm/dl (3.4-5.0) Globulin 3.8 gm/dl (2.5-4.0) Albumin/Globulin Ratio 0.9 (0.9-2) Lipase 149 U/L (73-393) Thyroid Stimulating Hormone (TSH) 2.220 uIu/ml (0.300-4.500) Lyme Disease IgG Antibody NEG (NEG) Lyme Disease IgM Antibody NEG (NEG) Bedside D-Dimer 234 ng/mlFEU (0-450) Bedside Troponin I < 0.030 ng/ml (0-0.045) Urine Color YELLOW Urine Appearance CLEAR (CLEAR) Urine pH 8.0 (4.5-7.5) Urine Specific Lohn 1.023 (1.000-1.030) Urine Protein NEG (NEG) Urine Glucose (UA) NEG (NEG) Urine Ketones NEG (NEG) Urine Occult Blood NEG (NEG) Urine Nitrite NEG (NEG) Urine Bilirubin NEG (NEG) Urine Urobilinogen NEG (NEG) Urine Leukocyte Esterase NEG (NEG) Urine Test NEG (NEG) Medications Administered Medications (Trade) Dose Ordered Sig/Michela Route Start Time Stop Time Status Last Admin Dose Admin Sodium Chloride 1,000 ml @ 999 mls/hr Q1H1M ONCE IV 09/09/16 02:15 09/09/16 03:15 DC 09/09/16 02:21 999 MLS/HR Pantoprazole Sodium (Protonix Tab) 40 mg NOW STAT PO 09/09/16 02:11 09/09/16 02:14 DC 09/09/16 02:21 40 MG Al Hydroxide/Mg Hydroxide (Maalox Susp) 30 ml STK-MED ONCE .ROUTE 09/09/16 02:17 09/09/16 02:18 DC 09/09/16 02:22 30 ML Lidocaine HCl (Viscous Lidocaine 2% Soln) 20 ml STK-MED ONCE .ROUTE 09/09/16 02:17 09/09/16 02:18 DC 09/09/16 02:17 10 ML Acetaminophen/ Hydrocodone Bitart (Platter 5/325mg Home Pack) 1 homepack UD ONCE PO 09/09/16 04:30 09/09/16 04:31 DC 09/09/16 04:23 1 HOMEPACK Ondansetron HCl (ZOFRAN ODT 4MG Home Pack) 1 homepack UD ONCE PO 09/09/16 04:30 09/09/16 04:31 DC 09/09/16 04:23 1 HOMEPACK ECG Change: Normal sinus rhythm with sinus arrhythmia @86 bpm Possible Left atrial enlargement Borderline ECG When compared with ECG of 16-NOV-2012 19:04, No significant change was found ED Course Physical exam and history were performed. Nursing notes and EMR were reviewed. Patient appears to have epigastric abdominal/lower chest wall pain for roughly the past one to 2 hours. She states this awoke her from sleep. She does have a history of some GI issues in the past, and does report having similar symptoms previously. IV access was established and labs were obtained. The patient was hydrated with saline. She was given a GI cocktail as well as oral Protonix. X-ray was performed. EKG is as above. The patient's blood work does not show a significantly elevated white blood cell count or gross anemia, bandemia, or significant electrolyte imbalance. Lipase and transaminases are nondiagnostic. Troponin and d-dimer 1 are both negative. 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 Chest x-ray was reviewed by myself and my attending showing no acute process. Official radiology read is pending at the time of this dictation. On reevaluation the patient had significant improvement of her symptoms after the GI cocktail and Protonix. Her symptoms do not appear to represent an acute cardiopulmonary event. I suspect that she may have gastritis, GERD, or PUD. I discussed this at length with her, and we'll discharge her home with a course of Protonix. The patient needs to follow with GI for further management, and she may need outpatient endoscopy. I will give her a home pack of Vicodin and Zofran for her immediate symptoms. She was otherwise invited back to the ER with any new, worsening, or concerning symptoms. The patient voiced understanding of this and rated her discomfort/10 at the time of departure. The chart was completed utilizing [employer] Speech Voice Recognition Software. Grammatical errors, random word insertions, pronoun errors, and incomplete sentences are an occasional consequence of this system due to software limitations, ambient noise, and hardware issues. Any formal questions or concerns about the content, text, or information contained within the body of this dictation should be directly addressed to the provider for clarification. . Medical Decision Differential diagnosis includes, but is not limited to: Myocardial infarction, dysrhythmia, pericarditis, pneumothorax, aortic aneurysm/dissection, DVT/PE, anxiety, GERD, PUD, electrolyte imbalance, thyroid disorder, pneumonia, bronchitis, pancreatitis, and others Impression Primary Impression: Non-cardiac chest pain Additional Impression: Epigastric abdominal pain Departure Information Dispostion Home / Self-Care Condition GOOD Prescriptions Pantoprazole (Protonix) 40 Mg Tab 40 MG PO DAILY for 14 Days, #14 TAB Prov: Lobo Sanchez PA-C 09/09/16 Referrals Riri Hernandez DO (PCP) Clive Vance D.O. Forms HOME CARE DOCUMENTATION FORM, IMPORTANT VISIT INFORMATION Patient Instructions My [facility] Additional Instructions You were seen and evaluated today on an emergency basis only. This is not a substitute for, or an effort to provide, complete comprehensive medical care. It is not possible to recognize and treat all injuries or illnesses in a single emergency department visit. 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 Platter (hydrocodone/acetaminophen) 5/325 mg (homepack) every 6 hours as needed for worsening breakthrough pain. Do not drink or drive on Platter. This medication will likely make you tired. Do not take Platter and Tylenol at the same time as both contain acetaminophen. Platter may cause constipation. You may wish to take an [id number] stool softener like Colace if this occurs. Zofran (homepack) 1 tablet every 6 hrs as needed for nausea. You are welcome to return to the emergency department anytime with new, worsening, or concerning symptoms. Problem Qualifiers
--- NOTE | 2016-09-09 07:40 | DIAGNOSTIC IMAGING REPORT ---
CHEST 2 VIEWS ROUTINE CLINICAL HISTORY: Chest/epigastric pain COMPARISON STUDY: Chest radiograph May 12, 2016. FINDINGS: Lung volumes are normal. There is no pneumothorax or pleural effusion. There are surgical clips within the lower neck. Cardiac size is normal. Mediastinal contours are normal. There is no evidence of pulmonary edema. IMPRESSION: No acute cardiopulmonary findings. Electronically signed by: Clemente Cote M.D. 09/09/2016 7:39 AM Dictated Date/Time: 09/09/2016 7:38 AM
== END 2016-09-09 04:28 | disposition home or self-care (01) ==
LOC: C.EDB 01:59 → C.EDA 04:28
DX: R07.89 Other chest pain (principal); R10.13 Epigastric pain; E89.0 Postprocedural hypothyroidism; F32.9 Major depressive disorder, single episode, unspecified; Z85.850 Personal history of malignant neoplasm of thyroid; Z90.89 Acquired absence of other organs; Z98.890 Other specified postprocedural states; Z79.899 Other long term (current) drug therapy

== ENCOUNTER → 2016-10-29 | Outpatient (CLI) | payer OTHER ==
[~2016-10-29] MED LIST changes: +DICY10CA55 PO; +DOCU-94 PO; -DOCU100C PO; +FLUO40CA8 PO; +MONT1TAB3 PO; +NORE-3 PO; -POLY150C4 PO; -[UNRECOGNIZED DRUG - CODE] PO
[2016-10-29 17:05] LABS: BASO % 0.2 %; BASO ABS # 0.01 K/uL (0-0.2); COMPLETE YES; EOS % 1.7 %; HEMATOCRIT 37.9 % (37-47); IG% 0.2 %; LYMPH % 33.6 %; LYMPH ABS # 1.62 K/uL (1.2-3.4); MEAN CELL VOLUME 88.3 fL (80-100); MEAN CORPUSCULAR HGB CONC 31.7 g/dl (32-36); MEAN PLATELET VOLUME 10.6 fL (7.4-10.4); MONO % 6.4 %; NEUT % 57.9 %; PLATELET COUNT 247 K/uL (130-400); RED BLOOD COUNT 4.29 M/uL (4.2-5.4); WHITE BLOOD COUNT 4.82 K/uL (4.8-10.8)
[2016-10-29 17:36] LABS: ESTIMATED AVERAGE GLUCOSE 97 mg/dl; HA1C FLAG Normal (Normal)
== END | disposition home or self-care (01) ==
LOC: C.LABBC 12:36
PROVIDERS: ATTEND Family Medicine
DX: B37.81 Candidal esophagitis (principal)

== ENCOUNTER 2016-12-29 05:19 | Emergency (ER) | payer OTHER ==
[~2016-12-29] VITALS: Ht 172.7 cm; Wt 106.4 kg
[~2016-12-29 05:19] MED LIST changes: -DICY10CA55 PO; -DOCU-94 PO; -NORE-3 PO; -PRT/20 PO
[2016-12-29 05:23] VITALS: TEMP 36.7; Ht 172.7 cm; Wt 106.4 kg
[2016-12-29] MEDS ORDERED: ONDANSETRON INJ 2 MG/ML 2 ML VIAL IV STA (05:42)
[2016-12-29] MEDS ORDERED: GI COCKTAIL PO STA (05:42)
[2016-12-29] MEDS ORDERED: SODIUM CHLORIDE 0.9% 1000ML 1,000 ML IV STA (05:42)
[2016-12-29] MEDS ORDERED: ALUMINUM/MAGNESIUM SUSP 30 ML UDC ONE (05:46)
[2016-12-29] MEDS ORDERED: LIDOCAINE HCL 2% VISC SOLN 20 ML UDC ONE (05:47)
[2016-12-29 05:52] LABS: BASO % 0.2 %; BASO ABS # 0.01 K/uL (0-0.2); COMPLETE YES; EOS % 1.6 %; HEMATOCRIT 36.1 % (37-47); IG% 0.3 %; LYMPH % 34.6 %; LYMPH ABS # 2.17 K/uL (1.2-3.4); MEAN CELL VOLUME 86.8 fL (80-100); MEAN CORPUSCULAR HEMOGLOBIN 28.8 pg (25-34); MEAN CORPUSCULAR HGB CONC 33.2 g/dl (32-36); MEAN PLATELET VOLUME 10.4 fL (7.4-10.4); MONO % 10.8 %; NEUT % 52.5 %; PLATELET COUNT 229 K/uL (130-400); RED BLOOD COUNT 4.16 M/uL (4.2-5.4); WHITE BLOOD COUNT 6.28 K/uL (4.8-10.8)
[2016-12-29] MEDS ORDERED: PROMETHAZINE HCL INJ 25 MG in SODIUM CHLORIDE 0.9% 50ML 50 ML IV STA (05:52)
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
[2016-12-29 06:10] LABS: BUN/CREATININE RATIO 18.3 (10-20); CALCIUM 8.8 mg/dl (8.5-10.1); CREATININE 0.83 mg/dl (0.60-1.20)
[2016-12-29 06:13] LABS: ALB/GLOB RATIO 0.9 (0.9-2)
[2016-12-29] MEDS ORDERED: DICY10CA55 PO (06:56)
[2016-12-29] MEDS ORDERED: DOCU-94 PO (06:56)
[2016-12-29] MEDS ORDERED: LEVO200T PO (06:56)
[2016-12-29] MEDS ORDERED: NORE-3 PO (06:56)
[2016-12-29] MEDS ORDERED: PRT/20 PO (06:57)
[2016-12-29] MEDS ORDERED: DULO60CA44 PO (06:57)
[2016-12-29] MEDS ORDERED: FLUO40CA8 PO (06:57)
[2016-12-29] MEDS ORDERED: MoRPHine SULFATE 10 MG/ML CARP/VIAL IV STA (07:05)
--- NOTE | 2016-12-29 07:12 | DIAGNOSTIC IMAGING REPORT ---
ABDOMINAL ULTRASOUND, RIGHT UPPER QUADRANT HISTORY: RUQ/epigastric pain. COMPARISON: Abdominal ultrasound 12/21/2015. FINDINGS: Pancreas: The pancreatic tail is obscured by overlying bowel gas. The remaining portions of the pancreas are within normal limits. Liver: Mildly enlarged measuring 19 cm in length. Gallbladder: Tiny gallstone. No gallbladder wall thickening. CBD: Mildly distended measuring up to 7 mm. Right kidney: No hydronephrosis. IMPRESSION: 1. A single tiny gallstone. No gallbladder wall thickening. 2. Mildly distended common bile duct measuring 7 mm. 3. Mild hepatomegaly. Electronically signed by: Po Villagran M.D. 12/29/2016 7:10 AM Dictated Date/Time: 12/29/2016 7:09 AM
[2016-12-29 07:20] LABS: URINE APPEARANCE CLOUDY (CLEAR); URINE BILIRUBIN NEG (NEG); URINE COLOR YELLOW; URINE EPITHELIAL CELL AUTO >30 /lpf (0-5); URINE NITRITE NEG (NEG); URINE PH 6.5 (4.5-7.5); URINE SPECIFIC GRAVITY 1.023 (1.000-1.030); UROBILINOGEN NEG (NEG); ZZUR CULT IF INDIC CLEAN CATCH YES
[2016-12-29 07:22] LABS: MANUAL MICROSCOPIC REQUIRED? NO; REVIEW REQ? YES
--- NOTE | 2016-12-29 07:27 | DIAGNOSTIC IMAGING REPORT ---
ABDOMEN 2VIEW W/PA CHEST RTN CLINICAL HISTORY: 21 years-old Female presenting with RUQ/epigastric pain. TECHNIQUE: PA view of the chest and supine and upright views of the abdomen were obtained. COMPARISON: 09/09/2016 and a KUB from 05/21/2016. FINDINGS: Cardiomediastinal silhouette normal. Lungs and pleural spaces clear. Surgical clips project over the right paratracheal region. Moderate stool burden. No bowel obstruction. No gross pneumoperitoneum. Stool and bowel gas partially obscures the renal shadows limiting evaluation for calculi. No abnormal calcification is appreciated. Osseous structures normal. IMPRESSION: 1. No acute cardiopulmonary disease. 2. No radiographic evidence of acute intra-abdominal pathology. Electronically signed by: Martinez Arrington M.D. 12/29/2016 7:26 AM Dictated Date/Time: 12/29/2016 7:24 AM
[2016-12-29 07:41] LABS: URINE MUCUS PRESENT (NONE PRSENT)
--- NOTE | 2016-12-29 08:05 | EMERGENCY ROOM VISIT NOTE ---
ED Visit Note First contact with patient: 07:29 I received sign out from Jennifer Baker PA-C at 7:15 AM. Pt presented with epigastric pain, nausea and vomiting. She had labs that were unremarkable. Right upper quadrant ultrasound imaging showed mild common bile duct dilatation , recommending HIDA scan in follow-up. Patient is already followed by a kitchen steward. I re-evaluated the patient after she received morphine for pain, she reports her pain is much improved and she is happy to be discharged. She was given her discharge and all questions answered. Patient was discharged home in stable condition and ambulatory.
[2016-12-29 08:25] VITALS: BP 110/70; O2SAT 99
[2016-12-29 08:33] VITALS: PULSE 81
== END 2016-12-29 08:48 | disposition home or self-care (01) ==
LOC: C.EDB 05:21 → C.EDA 08:48
DX: R10.13 Epigastric pain (principal); R11.2 Nausea with vomiting, unspecified; R07.9 Chest pain, unspecified; R16.0 Hepatomegaly, not elsewhere classified; K83.9 Disease of biliary tract, unspecified; E03.9 Hypothyroidism, unspecified; Z85.850 Personal history of malignant neoplasm of thyroid

== ENCOUNTER → 2017-06-30 | Outpatient (CLI) | payer OTHER ==
[~2017-06-30] MED LIST changes: +DICY10CA55 PO; +DOCU-94 PO; +LEVO25TA PO; +LINA1CAP PO; -MONT1TAB3 PO; +NORE-3 PO; -NORE1TAB99 PO; +PRT/20 PO
[2017-06-30 11:33] LABS: BASO % 0.3 %; BASO ABS # 0.01 K/uL (0-0.2); EOS % 1.8 %; EOS ABS # 0.07 K/uL (0-0.5); HEMATOCRIT 38.9 % (37-47); HEMOGLOBIN 12.9 g/dL (12.0-16.0); IG# 0.01 K/uL (0.00-0.02); LYMPH % 34.8 %; LYMPH ABS # 1.39 K/uL (1.2-3.4); MEAN CELL VOLUME 86.4 fL (80-100); MEAN CORPUSCULAR HEMOGLOBIN 28.7 pg (25-34); MEAN CORPUSCULAR HGB CONC 33.2 g/dl (32-36); MEAN PLATELET VOLUME 10.8 fL (7.4-10.4); MONO % 10.8 %; MONO ABS # 0.43 K/uL (0.11-0.59); NEUT ABS # 2.08 K/uL (1.4-6.5); PLATELET COUNT 280 K/uL (130-400); RED CELL DISTRIBUTION WIDTH CV 12.7 % (11.5-14.5); RED CELL DISTRIBUTION WIDTH SD 40.8 fL (36.4-46.3); WHITE BLOOD COUNT 3.99 K/uL (4.8-10.8)
[2017-06-30 12:00] LABS: BLOOD UREA NITROGEN 18 mg/dl (7-18); CALCIUM 9.2 mg/dl (8.5-10.1); CARBON DIOXIDE 27 mmol/L (21-32); CREATININE 0.88 mg/dl (0.60-1.20); GLUCOSE 92 mg/dl (70-99); POTASSIUM 4.4 mmol/L (3.5-5.1); SODIUM 137 mmol/L (136-145)
== END | disposition home or self-care (01) ==
LOC: C.LABBC 08:49
PROVIDERS: ATTEND Orthopaedic Surgery
DX: Z01.812 Encounter for preprocedural laboratory examination (principal); M19.019 Primary osteoarthritis, unspecified shoulder

== ENCOUNTER → 2017-07-22 | Day surgery (SDC) | payer OTHER ==
[2017-07-06 15:39] VITALS: Ht 172.7 cm; Wt 120.5 kg
[~2017-07-22] VITALS: Ht 172.7 cm; Wt 120.5 kg
[~2017-07-22] MED LIST changes: +ATROPINE SULFATE 0.1 MG/ML 5ML SYR IV PRN; +BUPIVACAINE 0.25% 30 ML VIAL ONE; +CEFAZOLIN 3000MG IV PUSH 22.5 ML IV SCH; +DEXAMETHASONE SOD INJ 4 MG/ML VIAL ONE; -DICY10CA55 PO; -DOCU-94 PO; -DULO60CA44 PO; +EpHEDrine SULFATE INJ 50 MG/ML AMP IV PRN; +EpINEphrine INJ 1MG/ML AMP 1 MG/ML AMP ONE; +FENTANYL CITRATE INJ 50 MCG/1 ML 2 ML VIAL IV PRN; +FENTANYL CITRATE INJ 50 MCG/1 ML 2 ML VIAL ONE; +KETO10TA PO; +KETOROLAC TROMETHAMINE 30 MG/ML VIAL IV. PRN; +LACTATED RINGER'S 1000ML 1,000 ML IV SCH; +LIDOCAINE HCL 2% 2 ML VIAL (20MG/ML) ONE; +MIDAZOLAM HCL 1 MG/ML 2ML VIAL ONE; +ONDANSETRON INJ 2 MG/ML 2 ML VIAL IV PRN; +ONDANSETRON INJ 2 MG/ML 2 ML VIAL ONE; +OXYC-57 PO; +OXYCODONE/ACETAMINOPHEN 5-325 TAB PO PRN; +PROPOFOL IV EMULSION 10 MG/ML 20 ML VIAL IV ONE; -PRT/20 PO; +ROPIVACAINE 0.5% 5 MG/ML 30 ML VIAL ONE; +SCOPOLAMINE 1.5 MG TDSY TD ONE; +SODIUM CHLORIDE 0.9% 1000ML 1,000 ML IV SCH; +TOPI25TA99 PO
--- NOTE | 2017-07-22 12:06 | History & Physical Bridge - SC ---
H&P Re-Evaluation Bridge Note: I have examined the patient, reviewed the History & Physical and in the interval since the performance of the History & Physical I have noted the following changes of clinical significance: No changes noted
--- NOTE | 2017-07-22 13:29 | Discharge Instructions-SurgCtr ---
Discharge Instructions Date of Service Jul 22, 2017. Visit Reason for Visit: Left Shoulder Inflammation Rotator Cuff Tendon Discharge Discharge Diagnosis / Problem: SAME ABOVE Discharge Goals Goal(s): Decrease discomfort, Improve function Activity Recommendations Activity Limitations: as noted below Lifting Limitations: gradually increase as tolerated Exercise/Sports Limitations: gradually increase as tolerated Shower/Bathe: tomorrow Anesthesia . Post Anesthesia Instructions: If you have had General Anesthesia or IV Sedation: * Do not drive today. * Resume driving when surgeon permits. * Do not make important decisions or sign legal documents today. * Call surgeon for: 1. Temperature elevations greater than 101 degrees F. 2. Uncontrollable pain. 3. Excessive bleeding. 4. Persistent nausea and vomiting. 5. Medication intolerance (nausea, vomiting or rash). * For nausea and vomiting use only clear liquids such as: tea, soda, bouillon until nausea subsides, then gradually increase diet as tolerated. * If you have any concerns or questions, call your surgeon's office. If physician is unavailable and it is an emergency, call 911 or go to the nearest emergency room. . Instructions / Follow-Up Instructions / Follow-Up MEDICATIONS: * Resume previous medications unless instructed otherwise by your surgeon. * Always take pain medication on a full stomach or with food to avoid upset stomach. * Do not drink alcohol or drive while taking narcotics. * Ibuprofen or Tylenol may be taken if narcotic not needed. SPECIAL CARE INSTRUCTIONS: __ None _X_ Keep extremity elevated and iced x 48 hours; apply ice 20-30 minutes 8-10 times/day. May remove at night. _X_ Sling (WEAR FOR COMFORT ONLY) __24 hrs/day __ Remove at night __ Shoulder Immobilizer __ 24 hrs/day __ Remove at night _X_ Dressing __ Maintain until seen in office, may shower with plastic over site _X_ Remove dressings in 24-48 hours and then may shower _X_ Cover incisions with band-aids after showering __ Do not remove steri-strips Call physician if chills or temperature rises above 102 degrees or pain unrelieved by prescribed pain medications at . . Diet Recommendations Home Diet: no limitations Fluid Restriction: None Procedures Procedures Performed: Left Shoulder Diagnostic Arthroscopy, Extensive Debridement, distal clavicle resection Pending Studies Studies pending at discharge: no Work Instructions Return To Work: after follow-up (OR WHEN PAIN IS CONTROLLED ) Lifting Limitations: none Medical Emergencies . Who to Call and When: Medical Emergencies: If at any time you feel your situation is an emergency, please call 911 immediately. . Non-Emergent Contact Non-Emergency issues call your: Primary Care Provider Call Non-Emergent contact if: you have a fever, temperature is above 101.5 . . "Provider Documentation" section prepared by Jc Moran. .
[2017-07-22 14:17] VITALS: TEMP 36.3
[2017-07-22 14:57] VITALS: BP 135/95; PULSE 68; O2SAT 100
--- NOTE | 2017-07-22 15:01 | Anesthesia Progress Nt - [facility] ---
Anesthesia Post Op Note Date & Time Jul 22, 2017 at 15:00 Vital Signs Pain Intensity: 0 Vital Signs Past 12 Hours Date Time Temp Pulse Resp B/P (MAP) Pulse Ox O2 Delivery O2 Flow Rate FiO2 07/22/17 14:57 61 16 135/95 (108) 100 Room Air 68 07/22/17 14:17 36.3 65 16 131/92 (105) 99 Room Air 07/22/17 14:06 126/86 07/22/17 14:05 67 21 07/22/17 14:05 65 21 100 07/22/17 14:04 57 21 96 07/22/17 14:04 60 21 07/22/17 14:01 124/81 07/22/17 13:59 71 17 07/22/17 13:59 71 17 95 07/22/17 13:58 68 15 07/22/17 13:58 67 15 96 07/22/17 13:57 36.8 65 16 130/84 100 Room Air 07/22/17 13:56 130/84 07/22/17 13:53 68 11 07/22/17 13:53 68 11 100 07/22/17 13:51 123/81 07/22/17 13:48 68 15 100 07/22/17 13:48 67 15 07/22/17 13:46 126/80 07/22/17 13:43 65 19 07/22/17 13:43 64 19 100 07/22/17 13:42 127/83 07/22/17 13:38 69 16 07/22/17 13:38 71 16 100 07/22/17 13:37 67 21 07/22/17 13:37 68 21 100 07/22/17 13:36 148/107 07/22/17 13:32 68 13 07/22/17 13:32 68 13 100 07/22/17 13:31 140/94 07/22/17 13:28 119/86 07/22/17 13:27 36.4 80 20 119/86 99 Diffusion Mask 6 07/22/17 13:27 86 20 07/22/17 13:27 86 20 100 07/22/17 12:31 75 16 132/76 100 07/22/17 12:31 73 07/22/17 12:26 70 07/22/17 12:26 71 12 126/79 100 07/22/17 12:23 143/99 07/22/17 12:21 69 0 100 07/22/17 12:21 70 07/22/17 12:06 36.4 68 18 143/99 (114) 100 Room Air Notes Mental Status: alert / awake / arousable, participated in evaluation Pt Amnestic to Procedure: Yes Nausea / Vomiting: adequately controlled Pain: adequately controlled Airway Patency, RR, SpO2: stable & adequate BP & HR: stable & adequate Hydration State: stable & adequate Anesthetic Complications: no major complications apparent
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
== END | disposition home or self-care (01) ==
LOC: X.SURG 11:35
PROVIDERS: ATTEND Orthopaedic Surgery
DX: M19.012 Primary osteoarthritis, left shoulder (principal); K21.9 Gastro-esophageal reflux disease without esophagitis; J45.909 Unspecified asthma, uncomplicated; F32.9 Major depressive disorder, single episode, unspecified; Z85.850 Personal history of malignant neoplasm of thyroid; Z80.1 Family history of malignant neoplasm of trachea, bronchus and lung; Z80.3 Family history of malignant neoplasm of breast